=== PATIENT | female | born 1980 | race African-American/Black ===

== ENCOUNTER 2017-09-28 16:54 | Emergency (ER) | payer OTHER ==
[~2017-09-28] VITALS: Ht 167.6 cm; Wt 64.0 kg
[2017-09-28] MEDS ORDERED: TRAMADOL 50MG TABLET PO ONE (19:30)
[2017-09-28] MEDS ORDERED: KETOROLAC 60MG/2ML VIAL IM ONE (19:30)
[2017-09-28 19:58] VITALS: BP 141/97
== END 2017-09-28 20:27 | disposition home or self-care (01) ==
LOC: ER 18:56
DX: G89.29 Other chronic pain (principal); M54.5 Low back pain
CPT/HCPCS: 81025; 96372; 99283; J1885